=== PATIENT | female | born 1980 | race Caucasian/White ===

== ENCOUNTER 2017-03-17 15:10 | Observation (INO) | payer MEDICARE, MEDICAID ==
[~2017-03-17] VITALS: Ht 170.2 cm; Wt 72.6 kg
--- NOTE | ~2017-03-17 | HP ---
PATIENT'S NAME: MONAE LOVE [facility] AGE: 36 Y [address] ROOM: [place] [id number] LOCATION: [facility] ADMIT DATE: 03/17/2017 History & Physical DISCHARGE DATE: 03/19/2017 FAMILY PHYSICIAN: Dayron Fernandes MD ATTENDING PHYSICIAN: Ngoc Juarez DATE OF SERVICE: PATIENT IDENTIFICATION: Monae Love is a 36-year-old female. PRESENTING COMPLAINT: Nausea, vomiting, and back pain. HISTORY OF PRESENT ILLNESS: The patient was bucked off a horse on Father's Day and sustained a fracture of the superior endplate of the L2 vertebra. The patient was seen in the emergency room in [place], but continued to have pain. She was, therefore, referred to me here for evaluation and treatment. The patient rated her pain as severe and constant, and described this as a burning, tingling pain. Every movement aggravated the pain, and there were no alleviating factors. She also said her legs go numb once in a while. In addition, the patient had been vomiting and had had stomach pain, and vomited to the point where she felt that she was dehydrated. PAST MEDICAL HISTORY: Significant for depression, fibromyalgia, post-traumatic stress disorder, and chronic tension headache. SOCIAL HISTORY: The patient is a nonsmoker. She is . REVIEW OF SYSTEMS: A 10-point review of systems was carried out. The only abnormal finding was as described in the History of Present Illness. PHYSICAL EXAMINATION: GENERAL: The patient is a healthy-looking young woman who appeared to be in some distress when I saw her. She was vomiting quite a bit. VITAL SIGNS: Blood pressure 128/78, pulse rate 81. NEUROLOGICAL: Speech is intact. Cranial nerves; no deficits seen. Motor examination, the patient had normal strength in all her extremities. HEAD, EYES, EARS, NOSE, AND THROAT: No evidence of trauma. BACK: There is some tenderness along the midline of her lower back. PSYCHIATRIC: The patient is tearful, but has a normal affect. PATIENT'S NAME: MONAE LOVE [facility] AGE: 36 Y [address] ROOM: [address] [address] LOCATION: [facility] ADMIT DATE: 03/17/2017 History & Physical DISCHARGE DATE: 03/19/2017 FAMILY PHYSICIAN: Dayron Fernandes MD ATTENDING PHYSICIAN: Ngoc Juarez CARDIOVASCULAR: Heart sounds are present. RESPIRATORY SYSTEM: The patient is not short of breath at bedside. REVIEW OF IMAGING STUDIES: The patient had a CT scan of the lumbar spine which showed a superior endplate fracture of the L2 vertebra. While here at [facility], the patient had a lumbar spine MRI which showed a moderate size left disk herniation at L5-S1 and a very tiny right disk protrusion at L4-L5 of doubtful significance. The superior endplate compression fracture was not mentioned on the MRI scan. ASSESSMENT: Medical Decision Making: A 36-year-old female with back pain from falling off a horse. The patient also had signs of dehydration from excessive vomiting. TREATMENT RENDERED: The patient was admitted to hospital for observation and for rehydration. She also needed to have pain control parenterally. The patient stayed in hospital for a couple of days and was well enough to be discharged to home. She has since been discharged, and appointments will be made to follow her up as needed. MD BEN WESTO/alinel /[id number] D: [id number] T: [id number] HISTORY & PHYSICAL
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
[2017-03-17] MEDS ORDERED: ZOFRAN ODT4 MG PO (16:45)
[2017-03-17] MEDS ORDERED: FLEXERIL10 MG PO (16:52)
[2017-03-17] MEDS ORDERED: RIZATRIPTAN10 M1 PO (16:58)
[2017-03-17] MEDS ORDERED: ELAVIL25 MG PO (17:00)
[2017-03-17] MEDS ORDERED: LEVOTHROID (S100 MCG PO (17:02)
[2017-03-17] MEDS ORDERED: ARIPIPRAZOLE5 MG PO (17:04)
[2017-03-17] MEDS ORDERED: SINGULAIR10 MG PO (17:05)
[2017-03-17] MEDS ORDERED: DULERA 200 MCG/51 EA INH (17:10)
[2017-03-17] MEDS ORDERED: ALIVE WOMEN'S1 EACH PO (17:12)
[2017-03-17] MEDS ORDERED: VITAMIN A10000 UNIT PO (17:12)
[2017-03-17] MEDS ORDERED: PRILOSEC10 MG PO (17:14)
[2017-03-17] MEDS ORDERED: CITRACAL+D(315M1 TAB PO (17:16)
--- NOTE | 2017-03-17 17:54 | NUR ---
Significant Event: Patient admitted to floor from Dr Juarez's clinic. Patient A/O 3. C/O numbness to left foot. Able to move all limbs spontaneously. VSS. Room air with sats in the mid 90s. LS clear and diminished. N/V. Zofran given at 1638. Chest sore from vomiting. Dilaudid 0.5 mg IVP at 1730. Some relief noted. Concentrated urine. BM this AM at home. Scattered bruising throughout. L) AC infusing NS at 50 ml/hr. No complications. MRI this evening. Pleasant and cooperative with cares. Follow up: PT/OT, pain control, N/V
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
--- NOTE | 2017-03-18 16:45 | NUR ---
A/O. VSS. CSM WNL. Pt fell from a horse on Father's Day. Was admitted to floor from Dr Juarez's clinic. Taking IV Dilaudid 0.5mg Q2h. C/O nausea when standing or moving around. Was up with PT to walk a few times today. OT helped shower. Has not been ordering meals due to nausea. C/O migraine headache. Scattered brusing on arms. Numbness and tingling in toes and sides of feet. MRI done on 03/17.
--- NOTE | 2017-03-18 18:43 | NUR ---
I reviewed and approve of charting by SN Jeison
--- NOTE | 2017-03-19 01:48 | NUR ---
Significant Event: PATIENT ALERT AND ORIENTED X 3 . VSS. POOR PO INTAKE. VOIDING WITHOUT DIFFICULTY. UP WITH SBA IN HALLWAY AND ROOM. HAD MIGRAINE AT BEGINNING OF SHIFT - MAXALT GIVEN AT 1915 WITH RELIEF. TAKING ORAL DILAUDID, VALIUM, AND FLEXERIL FOR PAIN. HAD DILAUDID LAST AT 0400, VALIUM LAST AT 2022 AND FLEXERIL LAST AT 0000. ONLY USE IVP DILAUDID FOR SEVERE PAIN. CONTINUES TO C/O N/T TO BILATERAL FEET, AREAS VARY, AND WEAKNESS TO RIGHT LEG, OTHER CSM'S WNL/ PERIPHERAL IV INFUSING IN LEFT AC WITHOUT DIFFICULTY - SL AFTER THIS BAG DONE. NO C/O NAUSEA THIS SHIFT. BS ACTIVE. SCATTERED BRUISING PRESENT. COOPERTIVE WITH CARES. SHOULD D/C TODAY. Follow up:
[2017-03-19] MEDS ORDERED: DILAUDID 2MG(HYD2 MG PO (09:10)
--- NOTE | 2017-03-19 14:24 | NUR ---
Attempted to see patient twice today. 3rd attempt had discharged. Per chart review no identified needs.
== END 2017-03-19 13:33 | disposition disaster alternative care site (69) ==
LOC: EDSTATUS 15:10 → G3N 15:15
PROVIDERS: ADMIT Neurological Surgery
DX: M48.56XA Collapsed vertebra, not elsewhere classified, lumbar region, initial encounter for fracture (principal); Z88.0 Allergy status to penicillin; Z88.5 Allergy status to narcotic agent; Z88.8 Allergy status to other drugs, medicaments and biological substances; Z79.899 Other long term (current) drug therapy
CPT/HCPCS: G0378; G0379; G8987; G8988; G8989; J1170; J2405; J7030